=== PATIENT | male | born 1960 | race Caucasian/White ===

== ENCOUNTER → 2018-02-21 18:15 | Outpatient (REF) | payer OTHER, SELFPAY | LOC: LBN 18:15 | PROVIDERS: Visit Provider Otolaryngology Otolaryngology/Facial Plastic Surgery | DX: H92.12 Otorrhea, left ear (principal) | CPT/HCPCS: 87077; 87070; 87205 ==

== ENCOUNTER 2018-04-11 18:39 | Outpatient (REF) | payer OTHER, SELFPAY | END 2018-04-11 18:59 | LOC: LBN 18:39 | PROVIDERS: Visit Provider Otolaryngology Otolaryngology/Facial Plastic Surgery | DX: H92.12 Otorrhea, left ear (principal) | CPT/HCPCS: 87077; 87070; 87186; 87205 ==

== ENCOUNTER 2018-04-29 00:42 | Outpatient (CLI) | payer OTHER, SELFPAY ==
--- NOTE | 2018-04-29 09:23 | DI.CT_ITS ---
SYMPTOMS/DIAGNOSIS: CHRONIC LT EAR OTITIS EXTERNA, S/P SURGERY FOR CHOLESTEATOMA, ? RECURRENCE CT OF THE TEMPORAL BONES: There are no prior comparison exams. The patient has a history of previous surgery for cholesteatoma. There is an area of abnormal soft tissue density and bony destruction is seen involving the posterior and superior left temporal bone. There is thinning of the superior temporal bone near the temporal skull base. There is destruction of the ossicles. The soft tissue abnormality extends into the middle ear. The findings could be secondary to recurrent cholesteatoma, however other mass or even infection can not be excluded. IMPRESSION: Soft tissue mass involving the middle ear with bony destruction and extension into the superior temporal bone with thinning of the temporal skull base.
== END 2018-04-29 01:02 ==
PROVIDERS: Visit Provider Nurse Practitioner Family
DX: H60.62 Unspecified chronic otitis externa, left ear (principal); H93.8X2 Other specified disorders of left ear; Z98.890 Other specified postprocedural states
CPT/HCPCS: 70480